=== PATIENT | male | born 1965 | race Caucasian/White ===

== ENCOUNTER → 2020-12-14 | Outpatient (CLI) | payer BC ==
[~2020-12-14] MED LIST: GADOTERATE 5 MMOL/10ML VIAL. IVP ONE; IOHEXOL 300 MG/ML 50 ML VIAL. IJ ONE
--- NOTE | 2020-12-14 17:55 | RAD ---
EXAM: Fluoroscopically guided left shoulder injection for MR arthrography. HISTORY: 55-year-old man with anterior and posterior left shoulder pain after injury a year ago. TECHNIQUE: The risks and benefits of the procedure were discussed with the patient and written and ve rbal consent were obtained. A time out procedure was performed. Fluoroscopic imaging of the left shoulder was performed. The overlying skin was sterilely prepped and infiltrated with 1% lidocaine for local anesthesia. A 22-gauge spinal needle was then advanced into the joint space under fluoroscopic guidance. Intra-articular positioning positioning was confirmed wi th a small injection of iodinated contrast. 12 mL of 1:200 dilution gadolinium contrast (Clariscan) with saline and iodinated contrast was injected under fluoroscopic control. Instrumentation was withd rawn and a sterile dressing placed. There were no immediate complications. The patient was transferre d to the MR suite for additional imaging. Fluoroscopy time 0.6 minutes. 4 images were obtained. Refer to the MR report for additional detail. IMPRESSION: Successful fluoroscopically guided left shoulder injection for MR arthrography. Please re andrey to the separate MR report for additional detail. Electronically signed by: Ambar Becerril MD (12/14/2020 5:52 PM) [id number]
--- NOTE | 2020-12-15 08:54 | RAD ---
ADDENDUM #1 Addendum: The acromion is type II. Electronically signed by: Jose Summers MD (12/15/2020 9:09 AM) [id number] ORIGINAL REPORT Examination: MRI left shoulder arthrogram HISTORY: History of left shoulder pain COMPARISON: None available Technique: Multiplanar, multisequence MR imaging of the left shoulder performed after arthrogram inje ction. FINDINGS: The long head of the biceps tendon within the bicipital groove. The attachment of the long head the b iceps tendon to the superior labral anchor grossly appears intact. There is increased T2 signal ident ified in the long head of the biceps tendon likely tendinosis. There is increased signal identified i n the subscapularis, supraspinatus, infraspinatus tendon likely moderate tendinosis. There is increased signal identified throughout the labrum likely extensive 360 degree labral tear. Deep fissuring of cartilage identified in the glenohumeral joint. Moderate to severe joint space loss identified in the glenohumeral joint likely degenerative changes with moderate size osteophyte forma tion in the inferior aspect of the humerus head. The muscle bulk grossly appears unremarkable. Subchondral cystic changes identified in the superior g lenoid likely degenerative changes IMPRESSION: 1. Diffuse increased signal identified throughout the labrum likely 360 degree labral tear. 2. Moderate tendinosis of the rotator cuff. 3. Moderate degenerative changes glenohumeral joint, acromioclavicular joint. Electronically signed by: Jose Summers MD (12/15/2020 8:51 AM) [id number]
== END | disposition home or self-care (01) ==
LOC: RAD 15:01
PROVIDERS: ATTEND Orthopaedic Surgery
DX: M25.512 Pain in left shoulder (principal); Z88.0 Allergy status to penicillin
CPT/HCPCS: 23350; 73040; 73222; 77002